=== PATIENT | female | born 1950 | race Caucasian/White ===

== ENCOUNTER 2021-03-06 16:13 | Emergency (ER) | payer OTHER ==
[~2021-03-06] VITALS: Ht 162.6 cm; Wt 73.9 kg
[2021-03-06 16:13] VITALS: BP 147/71
--- NOTE | 2021-03-06 16:13 | NUR ---
PT BIBA AND PLACED IN BED 9.
--- NOTE | 2021-03-06 16:49 | NUR ---
DR SWANN AT BEDSIDE EVALUATING PT
[2021-03-06] MEDS ORDERED: MORPHINE SULFATE 4 MG/ML SYR IVP ONE (17:20)
--- NOTE | 2021-03-06 17:28 | NUR ---
71 Y/O FEMALE BIBA WITH C/O 05/11 HEADACHE. PER MEDICS, PT WAS ON THE WAY HERE AND STOPPED AT [facility] AND CALLED 911. PT ALSO C/O CHEST DISCOMFORT AND . PT DENIES ANYONE SICK AT HOME. PT PLACED ON MONITOR AND O2 CONT READING. EKG DONE; SINUS TACHY. PT DENIES SOB, N/V/D AT THIS TIME. ROM AND SENSATION INTACT, NO WEAKNESS NOTED TO EXT. FACIAL SYMMETRY, PERRLA. A&OX4, RR EVEN AND UNLABORED. BED IN LOWEST POSITION, SIDE RAILS UP FOR SAFETY. DAUGHTER AT BEDSIDE. PMH:HEART STENT- STEMI, DM, HTN NKDA
[2021-03-06 17:38] LABS: BASOPHILS # (AUTO) 0.1 K/uL (0.00-0.22); BASOPHILS % (AUTO) 0.4 % (0.0-2.0); EOSINOPHILS % (AUTO) 0.1 % (0.0-4.0); LYMPHOCYTES # (AUTO) 1.1 K/uL (2.5-16.5); LYMPHOCYTES % (AUTO) 7.4 % (20.5-51.1); MEAN CORPUSCULAR HEMOGLOBIN 32 pg (27-31); MEAN CORPUSCULAR HGB CONC 34 g/dL (33-37); MEAN CORPUSCULAR VOLUME 93.5 fL (80-94); MONOCYTES % (AUTO) 6.7 % (1.7-9.3); NEUTROPHILS # (AUTO) 12.8 K/uL (1.8-7.7); NEUTROPHILS % (AUTO) 85.4 % (42.2-75.2); PLATELET COUNT (AUTO) 258 K/uL (140-450); RED BLOOD CELL COUNT(AUTO) 3.42 MIL/uL (4.20-5.40); RED CELL DISTRIBUTION WIDTH 13.4 % (11.6-13.7); WHITE BLOOD COUNT (AUTO) 14.9 K/uL (4.8-10.8)
[2021-03-06] MEDS ORDERED: LISI40TA12 PO (17:42)
[2021-03-06] MEDS ORDERED: GLIP10TE PO (17:42)
[2021-03-06] MEDS ORDERED: ASPI-1822 PO (17:42)
[2021-03-06] MEDS ORDERED: METF500T PO (17:42)
[2021-03-06 17:50] LABS: ALBUMIN 3.6 g/dL (3.4-5.0); ANION GAP 13.9 (8-16); ASPARTATE AMINOTRANSFERASE 26 U/L (15-37); CARBON DIOXIDE 24.2 mmol/L (21-32); CHLORIDE 99 mmol/L (98-107); CREATININE 0.9 mg/dL (0.6-1.3); GLUCOSE 205 mg/dL (74-106); POTASSIUM 4.1 mmol/L (3.5-5.1); SODIUM SERUM 133 mmol/L (136-145); TOTAL BILIRUBIN 0.7 mg/dL (0.0-1.0); UREA NITROGEN, BLOOD 16 mg/dL (7-18)
--- NOTE | 2021-03-06 18:19 | NUR ---
PT TRANSPORTED TO CT VIA R[facility].
--- NOTE | 2021-03-06 18:41 | NUR ---
PT BACK FROM CT AND CONNECTED TO MONITOR
--- NOTE | 2021-03-06 19:14 | NUR ---
Rceived report from NADIA [facility] for continuity of care
--- NOTE | 2021-03-06 19:15 | NUR ---
REPORT GIVEN TO TL RN, TRANSFER OF CARE AT THIS TIME
--- NOTE | 2021-03-06 19:22 | NUR ---
patient in semi fowlers, relaxed, VSS. AAOX4. patient's daughter at bedside. c/o pain of 02/08. ERMD made aware.
[2021-03-06] MEDS ORDERED: HYDROcodone/APAP 5/325 MG 1 TAB TAB PO ONE (20:10)
[2021-03-06] MEDS ORDERED: ACET-2619 PO (20:14)
--- NOTE | 2021-03-06 20:30 | NUR ---
IV removed, catheter intact and site benign. Applied folded 4x4 gauze and tape to stop bleeding.
[2021-03-06 20:37] VITALS: BP 124/47
== END 2021-03-06 20:36 | disposition home or self-care (01) ==
LOC: MED 16:13
DX: R51.9 Headache, unspecified (principal); R11.0 Nausea; E07.9 Disorder of thyroid, unspecified; E11.9 Type 2 diabetes mellitus without complications; I10 Essential (primary) hypertension; Z79.899 Other long term (current) drug therapy
CPT/HCPCS: 36415; 70450; 70496; 70498; 80053; 84484; 85025; 85610; 85730; 93005; 96372; 99285; J2270; Q9967

== ENCOUNTER 2021-03-09 19:01 | Inpatient (IN) | payer OTHER, SELFPAY ==
[~2021-03-09] VITALS: Ht 162.6 cm; Wt 83.9 kg
[~2021-03-09 19:01] MED LIST: ACET-2619 PO; ASPI-1822 PO; GLIP10TE PO; LISI40TA12 PO; METF500T PO
[2021-03-09 19:20] VITALS: BP 126/62
--- NOTE | 2021-03-09 19:20 | NUR ---
to tent via gurney .brought in by ambulance with c/o fever, cough, sob, sao2 95%
[2021-03-09] MEDS ORDERED: NACL 0.9% 500 ML IV ONE (21:55)
--- NOTE | 2021-03-09 22:10 | NUR ---
Blood for labwork drawn . Patient tolerated well.
[2021-03-09] MEDS ORDERED: ONDANSETRON 4 MG/2 ML VIAL IVP ONE (22:15)
[2021-03-09] MEDS ORDERED: NACL 0.9% 1,000 ML IV ONE (22:15)
[2021-03-09 22:38] LABS: BASOPHILS % (AUTO) 0.2 % (0.0-2.0); HEMATOCRIT 30.9 % (36-48); HEMOGLOBIN 10.4 g/dL (12.0-16.0); LYMPHOCYTES # (AUTO) 0.6 K/uL (2.5-16.5); LYMPHOCYTES % (AUTO) 4.6 % (20.5-51.1); MEAN CORPUSCULAR HEMOGLOBIN 32 pg (27-31); MEAN CORPUSCULAR HGB CONC 34 g/dL (33-37); MEAN CORPUSCULAR VOLUME 94.1 fL (80-94); MONOCYTES # (AUTO) 0.9 K/uL (0.8-1.0); MONOCYTES % (AUTO) 6.8 % (1.7-9.3); NEUTROPHILS # (AUTO) 11.7 K/uL (1.8-7.7); NEUTROPHILS % (AUTO) 88.4 % (42.2-75.2); PLATELET COUNT (AUTO) 259 K/uL (140-450); RED BLOOD CELL COUNT(AUTO) 3.28 MIL/uL (4.20-5.40); RED CELL DISTRIBUTION WIDTH 13.8 % (11.6-13.7); WHITE BLOOD COUNT (AUTO) 13.3 K/uL (4.8-10.8)
[2021-03-09 22:56] LABS: LACTATE DEHYDROGENASE 179 U/L (81-234)
[2021-03-09 23:06] LABS: ALBUMIN 2.7 g/dL (3.4-5.0); ANION GAP 8.7 (8-16); ASPARTATE AMINOTRANSFERASE 55 U/L (15-37); CARBON DIOXIDE 30.3 mmol/L (21-32); CHLORIDE 89 mmol/L (98-107); CREATININE 1.1 mg/dL (0.6-1.3); GLUCOSE 337 mg/dL (74-106); SODIUM SERUM 124 mmol/L (136-145); TOTAL BILIRUBIN 1.2 mg/dL (0.0-1.0); UREA NITROGEN, BLOOD 11 mg/dL (7-18)
[2021-03-09 23:13] LABS: C-REACTIVE PROTEIN QUANT 34.1 mg/dL (0.0-0.9)
[2021-03-09 23:14] LABS: PROTHROMBIN TIME 11.3 secs (10.8-13.4)
[2021-03-10] MEDS ORDERED: MORPHINE SULFATE 4 MG/ML SYR IVP ONE (00:05)
[2021-03-10] MEDS ORDERED: IBUPROFEN 400 MG TAB PO ONE (00:05)
[2021-03-10] MEDS ORDERED: PIPERACILLIN/TAZOBACTAM 3.375 GM in DEXTROSE 5% 50 ML IV ONE (00:05)
--- NOTE | 2021-03-10 00:20 | NUR ---
SWABS FOR NOVEL , HERNAN, RSV, INFLUENZA A& B SENT TO LAB
[2021-03-10 00:39] LABS: APPEARANCE,URINE CLOUDY (CLEAR); BILIRUBIN,URINE 1+ (NEGATIVE); BLOOD, URINE 2+ (NEGATIVE); COLOR,URINE DARK YELLOW (YELLOW); LEUKOCYTE ESTERASE ,URINE NEGATIVE (NEGATIVE); NITRITE, URINE NEGATIVE (NEGATIVE); UGLUCOSE 3+ (NEGATIVE)
[2021-03-10 00:50] LABS: RBC,URINE 0-5 /HPF (0-5)
[2021-03-10 01:15] LABS: RSV NEGATIVE (NEGATIVE)
[2021-03-10] MEDS ORDERED: IBUPROFEN 400 MG TAB ONE (01:24)
--- NOTE | 2021-03-10 01:47 | NUR ---
PT TAKEN TO BED 3
[2021-03-10] MEDS ORDERED: MORPHINE SULFATE 4 MG/ML SYR ONE (02:43)
[2021-03-10] MEDS ORDERED: PIPERACILLIN/TAZOBACTAM 3.375 GM VIAL IV ONE (02:43)
[2021-03-10] MEDS ORDERED: ACETAMINOPHEN EXTRA STRENGTH 500 MG TAB ONE (02:43)
[2021-03-10] MEDS ORDERED: ONDANSETRON 4 MG/2 ML VIAL ONE (02:43)
[2021-03-10] MEDS ORDERED: ACETAMINOPHEN EXTRA STRENGTH 500 MG TAB PO ONE (02:45)
[2021-03-10] MEDS ORDERED: cefTRIAXone 1,000 MG VIAL ONE (05:32)
--- NOTE | 2021-03-10 07:15 | NUR ---
NEW IV BAG D5 NS AT 100 ML/HOUR WAS HANGED, INFUSING WELL, TOLERATED WELL BY THE PATIENT.
--- NOTE | 2021-03-10 07:30 | NUR ---
REPORT RECEIVED FROM SARAVANAN ZUNIGA FOR CONTINUITY OF CARE. PT A&OX4. ON 2LPM NASAL CANNULA. 02 SATURIATON 97%. SR ON MONITOR. IV SITE LT AC 18G, INTACT, PATENT, GOOD BLOOD RETURN. SKIN INTACT, WARM AND DRY. SAFETY PRECAUTIONS IN PLACE. CALL LIGHT WITHIN REACH. WILL CONTINUE TO MONITOR.
[2021-03-10] MEDS ORDERED: ONDANSETRON 4 MG/2 ML VIAL IVP PRN (08:15)
[2021-03-10] MEDS ORDERED: POTASSIUM CHLORIDE 10 MEQ TABER PO PRN (08:15)
[2021-03-10] MEDS ORDERED: HYDROcodone/APAP 5/325 MG 1 TAB TAB PO PRN (08:15)
[2021-03-10] MEDS ORDERED: NACL 0.9% 1,000 ML IV SCH (08:15)
[2021-03-10] MEDS ORDERED: KCL 20 MEQ/WATER INJ PREMIX 200 ML IV PRN (08:15)
[2021-03-10] MEDS ORDERED: MAG SULF 2000 MG/WATER PREMIX 50 ML IV PRN (08:15)
[2021-03-10] MEDS ORDERED: MAGNESIUM OXIDE 400 MG TAB PO PRN (08:15)
[2021-03-10] MEDS ORDERED: DEXTROSE 50% 50 ML SYR IVP PRN (08:20)
--- NOTE | 2021-03-10 08:39 | NUR ---
89Daughter Thelma Steen
[2021-03-10] MEDS: DOCUSATE SODIUM 100 MG GELCAP PO SCH (09:27)
--- NOTE | 2021-03-10 10:45 | NUR ---
PT AMBULATED TO RESTROOM, STEADY GAIT
--- NOTE | 2021-03-10 10:49 | NUR ---
RECEIVED CALL FROM PT'S DAUGHTER JENNI, UPDATED ON PT STATUS. ALL QUESTIONS AND CONCERNS ANSWERED AT THIS TIME,
[2021-03-10] MEDS: BLOOD GLUCOSE MONITORING 1 DEV DEV FS SCH ×3 (11:30→21:09)
[2021-03-10] MEDS: INSULIN LISPRO SLIDING SCALE 100 UNITS/ML VIAL SUBQ PRN ×3 (12:03→21:11)
--- NOTE | 2021-03-10 12:03 | NUR ---
Patient will be admitted to care of DR BLUM. Admited to MED/SURG. Will go to room 117. Belongings list completed. Report to DANIAL ZUNIGA.
--- NOTE | 2021-03-10 12:10 | NUR ---
Received pt from ER patient alert, awake, shaking, able to make needs know, skin warm to touch resp. even and unlabored, o2 sat 90, put o2 at 2l, o2 sat went up 97, no vomiting noted, temp 100 orally, tylenol given, lunch served , patient with fair appetite, daughter at bedside, call light within easy reach.
[2021-03-10] MEDS: ACETAMINOPHEN 325 MG TAB PO PRN ×2 (12:28→23:30)
[2021-03-10 13:09] LABS: ANION GAP 9.7 (8-16); CARBON DIOXIDE 28.3 mmol/L (21-32); CHLORIDE 92 mmol/L (98-107); GLUCOSE 269 mg/dL (74-106); SODIUM SERUM 126 mmol/L (136-145); UREA NITROGEN, BLOOD 16 mg/dL (7-18)
[2021-03-10 13:24] VITALS: BP 164/55
[2021-03-10 13:26] VITALS: BP 130/60
--- NOTE | 2021-03-10 13:30 | NUR ---
RECEIVE REPORT FROM DANIAL ZUNIGA FOR CONTINUITY OF PATIENT CARE. PATIENT AWAKE AND ALERT. DAUGHTER AT BEDSIDE. ALL SAFETY MEASURES IN PLACE. WILL CONTINUE TO MONITOR.
[2021-03-10] MEDS ORDERED: SODIUM PHOSPHATE 118 ML ENEM RC PRN (14:05)
--- NOTE | 2021-03-10 14:44 | NUR ---
PATIENT AWAKE AND ALERT. BREATHING EVEN AND UNLABORED. PATIENT ON 2 LITERS VIA NASAL CANNULA. DAUGHTER AT BEDSIDE. ALL SAFETY MEASURES IN PLACE. WILL CONTINUE TO MONITOR.
--- NOTE | 2021-03-10 16:52 | NUR ---
PATIENT HAS BEEN SCREENED AND CATEGORIZED HIGH NUTRITION RISK. PATIENT WILL BE SEEN WITHIN 1-2 DAYS OF ADMISSION. 03/10/21-03/11/21 FNS REFERRAL RECEIVED FOR UNINTENTIONAL WEIGHT LOSS AND DECREASED PO INTAKE OVER A WEEK VANDANA NUNEZ RD
[2021-03-10] MEDS ORDERED: DOCUSATE SOD/SENNA 50/8.6 MG 1 TAB PO PRN (17:35)
--- NOTE | 2021-03-10 18:12 | NUR ---
PATIENT SLEEPING. NO ACUTE DISTRESS NOTED. PATIENT ON 2 LITER VIA NASAL CANNULA. VS STABLE. ALL SAFETY MEASURES IN PLACE. WILL CONTINUE TO MONITOR.
--- NOTE | 2021-03-10 19:30 | NUR ---
ENDORSED TO DETAIL SUPERVISOR NURSE FOR CONTINUITY OF CARE. PATIENT STABLE. ALL SAFETY MEASURES IN PLACE. WILL CONTINUE TO MONITOR
[2021-03-10 20:00] VITALS: BP 145/75
--- NOTE | 2021-03-10 20:00 | NUR ---
PATIENT WAS RECEIVED AWAKE ALERT IN HER BED WITH DAUGHTER BESIDE HER. ON DROPLET PRECAUTION,
[2021-03-10] MEDS: DEXT 5% /NACL 0.9% 1,000 ML IV SCH (20:05)
--- NOTE | 2021-03-10 21:00 | NUR ---
ALL DUE MEDS WERE GIVEN, HEPARIN 5000 UNITS SQ INJECTION WAS GIVEN TOLERATED WELL.
--- NOTE | 2021-03-10 22:00 | NUR ---
PATIENT WAS ALERT ORIENT X 4, NO DISTRESS, PCR CAME BACK NEGATIVE, TRANSFERED TO A NEW ROOM AT 120 BED B.
--- NOTE | 2021-03-11 | NUR ---
PATIENT WENT TO VOID IN THE BATHROOM
[2021-03-11] MEDS: ACETAMINOPHEN 325 MG TAB PO PRN ×2 (00:46→20:40)
[2021-03-11 04:00] VITALS: BP 125/65
--- NOTE | 2021-03-11 06:00 | NUR ---
BS= 296 MG/DL, 6 UNIT REG INSULIN WAS GIVEN SQ RLQ ABD. TOLERATED WELL.
[2021-03-11] MEDS: DEXT 5% /NACL 0.9% 1,000 ML IV SCH (06:05)
[2021-03-11 06:14] LABS: BASOPHILS % (AUTO) 0.3 % (0.0-2.0); EOSINOPHILS # (AUTO) 0.2 K/uL (0-0.4); EOSINOPHILS % (AUTO) 1.3 % (0.0-4.0); HEMATOCRIT 27.7 % (36-48); HEMOGLOBIN 9.4 g/dL (12.0-16.0); LYMPHOCYTES % (AUTO) 7.8 % (20.5-51.1); MEAN CORPUSCULAR HEMOGLOBIN 32 pg (27-31); MEAN CORPUSCULAR HGB CONC 34 g/dL (33-37); MEAN CORPUSCULAR VOLUME 93.6 fL (80-94); MONOCYTES # (AUTO) 1.4 K/uL (0.8-1.0); NEUTROPHILS # (AUTO) 10.1 K/uL (1.8-7.7); NEUTROPHILS % (AUTO) 79.6 % (42.2-75.2); PLATELET COUNT (AUTO) 220 K/uL (140-450); RED BLOOD CELL COUNT(AUTO) 2.96 MIL/uL (4.20-5.40); RED CELL DISTRIBUTION WIDTH 14.1 % (11.6-13.7); WHITE BLOOD COUNT (AUTO) 12.8 K/uL (4.8-10.8)
[2021-03-11 06:50] LABS: ALBUMIN 2.1 g/dL (3.4-5.0); ANION GAP 8.9 (8-16); ASPARTATE AMINOTRANSFERASE 78 U/L (15-37); CARBON DIOXIDE 28.6 mmol/L (21-32); CHLORIDE 93 mmol/L (98-107); GLUCOSE 259 mg/dL (74-106); POTASSIUM 4.5 mmol/L (3.5-5.1); SODIUM SERUM 126 mmol/L (136-145); TOTAL BILIRUBIN 0.9 mg/dL (0.0-1.0); UREA NITROGEN, BLOOD 18 mg/dL (7-18)
[2021-03-11] MEDS: BLOOD GLUCOSE MONITORING 1 DEV DEV FS SCH ×4 (07:14→20:44)
[2021-03-11] MEDS: INSULIN LISPRO SLIDING SCALE 100 UNITS/ML VIAL SUBQ PRN ×4 (07:15→20:43)
--- NOTE | 2021-03-11 07:34 | NUR ---
ALL REPORTS GIVEN TO INCOMING RN, TRANSFER OF CARE ENDORSED.
[2021-03-11 08:00] VITALS: BP 168/88
[2021-03-11] MEDS: POLYETHYLENE GLYCOL 17 GM/PKT PO SCH (09:00)
[2021-03-11] MEDS ORDERED: amLODIPine 5 MG TAB PO SCH (09:25)
[2021-03-11] MEDS: DOCUSATE SODIUM 100 MG GELCAP PO SCH (10:16)
[2021-03-11] MEDS ORDERED: bisacodyL 5 MG TABEC PO PRN (11:10)
[2021-03-11] MEDS: NACL 0.9% 1,000 ML IV SCH (12:25)
[2021-03-11 16:00] VITALS: BP 149/67
[2021-03-11 16:44] LABS: ANION GAP 11.9 (8-16); CARBON DIOXIDE 29.2 mmol/L (21-32); CHLORIDE 88 mmol/L (98-107); GLUCOSE 267 mg/dL (74-106); POTASSIUM 4.1 mmol/L (3.5-5.1); SODIUM SERUM 125 mmol/L (136-145); UREA NITROGEN, BLOOD 14 mg/dL (7-18)
--- NOTE | 2021-03-11 17:06 | NUR ---
03/11/21 RD INITIAL ASSESSMENT COMPLETED PLEASE REFER TO NUTRITION ASSESSMENT UNDER CARE ACTIVITY FOR ESTIMATED NUTRITIONAL NEEDS. 1. RECOMMEND MECHANICAL CCHO 60GM DIET TOLERATED 2. RECOMMEND GLUCERNA BID FOR POOR PO INTAKE 3. RD TO FOLLOW-UP 3-5 DAYS, MODERATE RISK VANDANA NUNEZ, RD
--- NOTE | 2021-03-11 19:22 | NUR ---
LATE ENTRY- ROCEPHIN IVPB DISCONTINUED 0620.
--- NOTE | 2021-03-11 19:30 | NUR ---
PATIENT'S BP HIGH THIS AM. PATIENT HAVING SIMONS RATED 9 ON SCALE 1/10 DR IN TO SEE PATIENT. NEW ORDERS FOR BP MED AND MID LINE ORDERED DUE TO PATIENT'S IV INFILTRATED ON KIT ASSEMBLER. MIDLINE PLACED ONCE RN AVALIABLE EARLY AFTERNOON WITH ROCEPHIN GIVEN PATIENT RUNNING LOW GRADE TEMP. AROUND 1500 LAB HERE TO DRAW NEW LAB'S WILL REPORT TO NIGHT NURSE TO FOLLOW UP ON LABS.
--- NOTE | 2021-03-11 19:40 | NUR ---
RECEIVED BEDSIDE REPORT FROM DAY SHIFT NURSE. PATIENT IS AWAKE AND COOPERATIVE. DAUGHTER AT BEDSIDE. PATIENT RESPIRATION EVEN UNLABORED ON ROOM AIR. NO DISTRESS NOTED. SKIN IS WARM AND DRY. RIGHT UPPER ARM PICC LINE NOTED PATENT AND INTACT. PLAN OF CARE WAS DISCUSSED. ALL SAFETY MEASURES IN PLACE. BED IS AT LOW POSITION. CALL LIGHT WITHIN REACH. WILL CONTINUE TO MONITOR
[2021-03-11 20:00] VITALS: BP 153/60
--- NOTE | 2021-03-11 20:40 | NUR ---
INITIAL ASSESSMENT DONE. VITALS WERE TAKEN. PATIENT TEMP 100.7 PRN TYLENOL GIVEN PER FEVER. COOLING MEASURES APPLIED. ALL SCHEDULED MEDS WERE GIVEN PER MD ORDER. WILL CONTINUE TO MONITOR
--- NOTE | 2021-03-11 21:15 | NUR ---
RECHECKED PATIENT TEMPERATURE, PATIENT TEMP 98.5 TEMPORAL. WILL CONTINUE TO MONITOR
--- NOTE | 2021-03-11 22:00 | NUR ---
PROVIDED WATER AND HELPED PATIENT TO THE BATHROOM
[2021-03-11 22:23] LABS: ANION GAP 11.1 (8-16); CARBON DIOXIDE 25.6 mmol/L (21-32); CHLORIDE 91 mmol/L (98-107); GLUCOSE 239 mg/dL (74-106); POTASSIUM 3.7 mmol/L (3.5-5.1); SODIUM SERUM 124 mmol/L (136-145); UREA NITROGEN, BLOOD 15 mg/dL (7-18)
--- NOTE | 2021-03-11 22:30 | NUR ---
PER DR. CARDENAS REPORT PATIENT NA WHEN ITS BELOW 125. PATIENT LATEST NA 124, PAGED AWAITING FOR HIS CALL.
--- NOTE | 2021-03-11 23:10 | NUR ---
PAGED DR. HENRY TWICE, STILL WAITING FOR HIS CALL BACK.
--- NOTE | 2021-03-11 23:30 | NUR ---
SPOKE WITH DR. HENRY, REPORTED SODIUM 124, NO NEW ORDERS RECEIVED.
--- NOTE | 2021-03-12 00:41 | NUR ---
MADE ROUNDS, PATIENT SLEEPING RESPIRATION EVEN UNLABORED ON ROOM AIR. NO DISTRESS NOTED. WILL CONTINUE TO MONITOR,
[2021-03-12] MEDS: NACL 0.9% 1,000 ML IV SCH (01:10)
--- NOTE | 2021-03-12 01:45 | NUR ---
PATIENT WOKE UP HUNGRY, PROVIDED FOOD.
--- NOTE | 2021-03-12 02:28 | NUR ---
MADE ROUNDS, PATIENT SLEEPING RESPIRATION EVEN UNLABORED ON ROOM AIR. NO DISTRESS NOTED. WILL CONTINUE TO MONITOR.
[2021-03-12 04:00] VITALS: BP 162/56
--- NOTE | 2021-03-12 05:10 | NUR ---
VITALS WERE TAKEN.
[2021-03-12] MEDS: hydrALAZINE 25 MG TAB PO PRN ×2 (05:28→10:45)
--- NOTE | 2021-03-12 05:30 | NUR ---
PATIENT BP 162/56 PRN HYDRALAZINE GIVEN PER ORDER. WILL CONTINUE TO MONITOR
[2021-03-12 05:55] LABS: BASOPHILS % (AUTO) 0.2 % (0.0-2.0); EOSINOPHILS % (AUTO) 0.1 % (0.0-4.0); HEMATOCRIT 27.6 % (36-48); HEMOGLOBIN 9.5 g/dL (12.0-16.0); LYMPHOCYTES # (AUTO) 1.4 K/uL (2.5-16.5); LYMPHOCYTES % (AUTO) 8.3 % (20.5-51.1); MEAN CORPUSCULAR HEMOGLOBIN 32 pg (27-31); MEAN CORPUSCULAR HGB CONC 35 g/dL (33-37); MEAN CORPUSCULAR VOLUME 93.2 fL (80-94); MONOCYTES # (AUTO) 1.5 K/uL (0.8-1.0); MONOCYTES % (AUTO) 8.6 % (1.7-9.3); NEUTROPHILS # (AUTO) 14.3 K/uL (1.8-7.7); NEUTROPHILS % (AUTO) 82.8 % (42.2-75.2); PLATELET COUNT (AUTO) 254 K/uL (140-450); RED BLOOD CELL COUNT(AUTO) 2.96 MIL/uL (4.20-5.40); RED CELL DISTRIBUTION WIDTH 14.1 % (11.6-13.7); WHITE BLOOD COUNT (AUTO) 17.3 K/uL (4.8-10.8)
[2021-03-12 06:10] LABS: ANION GAP 12.5 (8-16); ASPARTATE AMINOTRANSFERASE 97 U/L (15-37); CARBON DIOXIDE 25.6 mmol/L (21-32); CHLORIDE 91 mmol/L (98-107); CREATININE 0.9 mg/dL (0.6-1.3); GLUCOSE 223 mg/dL (74-106); MAGNESIUM 1.7 mg/dL (1.8-2.4); POTASSIUM 4.1 mmol/L (3.5-5.1); SODIUM SERUM 125 mmol/L (136-145); TOTAL BILIRUBIN 1.5 mg/dL (0.0-1.0); UREA NITROGEN, BLOOD 12 mg/dL (7-18)
[2021-03-12] MEDS: INSULIN LISPRO SLIDING SCALE 100 UNITS/ML VIAL SUBQ PRN ×4 (06:29→21:13)
[2021-03-12] MEDS: BLOOD GLUCOSE MONITORING 1 DEV DEV FS SCH ×4 (06:30→21:19)
--- NOTE | 2021-03-12 07:14 | NUR ---
ENDORSED PATIENT TO DAY SHIFT NURSE FOR CONTINUITY OF CARE
[2021-03-12 08:00] VITALS: BP 158/62
[2021-03-12] MEDS ORDERED: MAG SULF 2000 MG/WATER PREMIX 50 ML IV SCH (09:00)
[2021-03-12] MEDS ORDERED: EPOETIN ALFA-EPBX 10,000 UNITS/ML VIAL SUBQ SCH (09:00)
[2021-03-12] MEDS: DOCUSATE SODIUM 100 MG GELCAP PO SCH (10:44)
[2021-03-12] MEDS: POLYETHYLENE GLYCOL 17 GM/PKT PO SCH (10:45)
[2021-03-12] MEDS: SODIUM CHLORIDE 1 GM TAB PO SCH ×3 (10:46→17:00)
[2021-03-12] MEDS: amLODIPine 5 MG TAB PO SCH (10:54)
[2021-03-12] MEDS ORDERED: SAMSCA PO SCH (11:00)
[2021-03-12 16:00] VITALS: BP 152/67
[2021-03-12 18:02] LABS: ANION GAP 9.6 (8-16); CARBON DIOXIDE 26.4 mmol/L (21-32); CHLORIDE 93 mmol/L (98-107); CREATININE 0.9 mg/dL (0.6-1.3); GLUCOSE 267 mg/dL (74-106); SODIUM SERUM 125 mmol/L (136-145); UREA NITROGEN, BLOOD 12 mg/dL (7-18)
[2021-03-12 19:23] LABS: APPEARANCE,URINE CLEAR (CLEAR); BILIRUBIN,URINE NEGATIVE (NEGATIVE); BLOOD, URINE TRACE-I (NEGATIVE); COLOR,URINE YELLOW (YELLOW); LEUKOCYTE ESTERASE ,URINE NEGATIVE (NEGATIVE); NITRITE, URINE NEGATIVE (NEGATIVE); UGLUCOSE TRACE (NEGATIVE)
[2021-03-12 19:29] LABS: WBC,URINE 0-5 /HPF (0-5)
--- NOTE | 2021-03-12 19:45 | NUR ---
RECEIVED ENDORSEMENT FROM RN DAYSHIFT NURSE, FOR CONTINUITY OF CARE, PT IN STABLE CONDITION.
[2021-03-12 20:00] VITALS: BP 128/65
--- NOTE | 2021-03-12 20:00 | NUR ---
PT LYING DOWN IN BED SHE IS AOX3 AND MOSTLY [place]ET[place]ESE SPEAKING. SHE HAS AN INTACT RIGHT UPPER MIDLINE DOUBLE LUMEN RUNNING TO KVO. PT IS ON ROOM AIR AND SKIN INTACT. PT ABLE TO AMBULATE WITH STANDBY ASSISTANCE. V/S FOLLOWS: T 98.1 P 103 R 17 B/P 128/65 02 96% ON ROOM AIR. ALL FALLS PRECAUTIONS IN PLACE.
[2021-03-12] MEDS: MEROPENEM 500 MG in NACL 0.9% 50 ML IV SCH (20:49)
--- NOTE | 2021-03-12 21:15 | NUR ---
PT FINGERSTICK IS 271, SHE WAS GIVEN ORDERED /SCHEDULED SQ HUMALOG PER INSULIN SLIDING SCALE. PT VERBALIZED UNDERSTANDING OF WHY SHE WAS GIVEN INSULIN. PT ALSO GIVEN SCHEDULED MERREM AND HEPARIN, AGAIN PURPOSE AND SIDE EFFECTS OF THE ORDERED AND SCHEDULED MEDS PROVIDED, REINFORCEMENT NEEDED, BUT PT VERBALIZED UNDERSTANDING.
--- NOTE | 2021-03-12 22:13 | NUR ---
ES CONTINUES TO HAVE SLIGHT HIGH BP WITH WITH NEW BP MEDICATION ADDED NOW RENAL ON CASE FOLLOWING LOW NA LEVEL CONTINUE'S ON ANTIBIOTIC THERAPY NO BM OF TODAY AFTER PATIENT GIVEN DUCOLAX TAB'S AND GIVEN ENEMA. IN AND OUT CATH DONE TO OBTAIN STERILE URINE SAMPLE PATIENT GETTING UP OUT OF BED HAVING TO URINATE FREQUENTLY. STILL RUNNING LOW GRADE TEMP'S WILL FOLLOW UP WITH LAB'S AT 22:00 DAUGHTER REMAIN'S AT BEDSIDE.
[2021-03-12 22:35] LABS: ANION GAP 12.8 (8-16); CARBON DIOXIDE 24.1 mmol/L (21-32); CHLORIDE 98 mmol/L (98-107); GLUCOSE 249 mg/dL (74-106); POTASSIUM 3.9 mmol/L (3.5-5.1); SODIUM SERUM 131 mmol/L (136-145); UREA NITROGEN, BLOOD 12 mg/dL (7-18)
--- NOTE | 2021-03-13 00:30 | NUR ---
PT WAS STANDBY ASSIST TO THE TOILET. IV RUNNING ORDERED. PT GOWN AND SOCKS CHANGED REQUESTED. ALL FALLS PRECAUTIONS IN PLACE.
--- NOTE | 2021-03-13 04:30 | NUR ---
PT IN BED STANDBY ASSISTANCE TO TOILET AND BACK V/S FOLLOWS: T 98.5 P 91 R 18 B/P140/65 02 95% ON ROOM AIR. ALL FALLS PRECAUTIONS IN PLACE.
--- NOTE | 2021-03-13 05:30 | NUR ---
MERREM IV ABT HUNG AND RUNNING ORDERED.
[2021-03-13] MEDS: MEROPENEM 500 MG in NACL 0.9% 50 ML IV SCH ×3 (05:36→20:30)
[2021-03-13 06:21] LABS: HEMATOCRIT 27.1 % (36-48); HEMOGLOBIN 9.3 g/dL (12.0-16.0); MEAN CORPUSCULAR HEMOGLOBIN 32 pg (27-31); MEAN CORPUSCULAR HGB CONC 34 g/dL (33-37); MEAN CORPUSCULAR VOLUME 92.8 fL (80-94); PLATELET COUNT (AUTO) 289 K/uL (140-450); RED BLOOD CELL COUNT(AUTO) 2.92 MIL/uL (4.20-5.40); RED CELL DISTRIBUTION WIDTH 14.2 % (11.6-13.7); WHITE BLOOD COUNT (AUTO) 18.8 K/uL (4.8-10.8)
[2021-03-13] MEDS: INSULIN LISPRO SLIDING SCALE 100 UNITS/ML VIAL SUBQ PRN ×4 (06:24→20:33)
[2021-03-13] MEDS: BLOOD GLUCOSE MONITORING 1 DEV DEV FS SCH ×4 (06:27→20:22)
--- NOTE | 2021-03-13 06:30 | NUR ---
PT FINGERSTICK IS 268 6 UNITS HUMALOG COVERAGE GIVEN. ALL REQUESTED NEEDS ATTENDED BY STAFF.
--- NOTE | 2021-03-13 07:15 | NUR ---
RECEIVED REPORT FROM METAL BONDING HELPER NURSE. PATIENT IS AWAKE, ALERT, AND COOPERATIVE. RESPIRATION EVEN UNLABORED ON ROOM AIR. NO DISTRESS NOTED. SKIN IS WARM AND DRY. RIGHT UPPER ARM PICC LINE NOTED PATENT AND INTACT. PLAN OF CARE WAS DISCUSSED. ALL SAFETY MEASURES IN PLACE. BED IS AT LOW POSITION. CALL LIGHT WITHIN REACH, WILL CONTINUE TO MONITOR
[2021-03-13 07:16] LABS: ALBUMIN 1.9 g/dL (3.4-5.0); ANION GAP 9.1 (8-16); ASPARTATE AMINOTRANSFERASE 75 U/L (15-37); CARBON DIOXIDE 27.8 mmol/L (21-32); CHLORIDE 98 mmol/L (98-107); CREATININE 0.9 mg/dL (0.6-1.3); GLUCOSE 264 mg/dL (74-106); MAGNESIUM 2.2 mg/dL (1.8-2.4); POTASSIUM 3.9 mmol/L (3.5-5.1); SODIUM SERUM 131 mmol/L (136-145); UREA NITROGEN, BLOOD 11 mg/dL (7-18)
[2021-03-13 07:33] LABS: LYMPHOCYTES % (MANUAL) 4 % (20-46); MONOCYTES % (MANUAL) 8 % (5-12)
[2021-03-13 08:00] VITALS: BP 155/79
--- NOTE | 2021-03-13 08:30 | NUR ---
FAMILY AT BEDSIDE
--- NOTE | 2021-03-13 09:30 | NUR ---
ALL SCHEDULED MEDS WERE GIVEN PER ORDER. WILL CONTINUE TO MONITOR
[2021-03-13] MEDS: DOCUSATE SODIUM 100 MG GELCAP PO SCH (09:31)
[2021-03-13] MEDS: amLODIPine 5 MG TAB PO SCH (09:31)
[2021-03-13] MEDS: SODIUM CHLORIDE 1 GM TAB PO SCH ×3 (09:31→17:39)
[2021-03-13] MEDS: POLYETHYLENE GLYCOL 17 GM/PKT PO SCH (09:32)
--- NOTE | 2021-03-13 13:20 | NUR ---
SCHEDULED MERREM GIVEN PER ORDER. WILL CONTINUE TO MONITOR
--- NOTE | 2021-03-13 13:47 | NUR ---
DC PLANNING: PATIENT WITH BS OF 264, NA+ 131. ON NA+ PO, URINE AND BLOOD CULTURES RESULTED WITH KLEBSIELLA. WBC 18.8, PER DR. BOWLES HE WILL ORDER AN ID CONSULT. DC NEEDS OF HOME HEALTH AND CANE PER P.T. RECOMMENDATIONS. CM WILL FOLLOW FOR NEEDS. Addendum: 03/13/21 at 1425 by Mariela Ramsey CM DC PLANNING: CM SPOKE WITH PATIENTS DAUGHTER JENNI BY PHONE. PATIENT LIVES IN A SINGLE STORY HOUSE WITH JENNI, AND IS INDEPENDENT IN ALL ACTIVITIES. PATIENT GOES TO THE [facility] SIX MONTH[facility] FOR A GENERAL EXAM. NO PRIOR HOME HEALTH OR DME, ENDORSED THAT P.T. RECOMMENDS A CANE, AND THAT THE PATIENT MAY NEED HOME HEALTH FOR WOUND CARE AND FOLLOW UP. JENNI STATES SHE'S IN AGREEMENT WITH THE DC PLAN, CM WILL FOLLOW FOR NEEDS.
--- NOTE | 2021-03-13 14:09 | NUR ---
ATTEMPTED TO SEE PATIENT FOR PHYSICAL THERAPY TREATMENT HOWEVER PATIENT REPORTS PERFORMING EXERCISES PRIOR TO VISIT. DAUGHTER AT BEDSIDE SHOWING VIDEO OF PATIENT AMBULATING PRIOR TO VISIT. AMBULATED APPROX 80FT PER DAUGHTER WITH IMPROVED BALANCE FROM YESTERDAY'S THERAPY SESSION. PATIENT LYING IN BED COMFORTABLY STATING SHE JUST WANTS TO SLEEP DUE TO FATIGUE. AGREEABLE TO THERAPY SESSION FOR TOMORROW. RN AWARE.
--- NOTE | 2021-03-13 15:30 | NUR ---
MADE ROUNDS PATIENT SLEEPING RESPIRATION EVEN UNLABORED ON ROOM AIR. NO DISTRESS NOTED. FAMILY AT BEDSIDE. WILL CONTINUE TO MONITOR
[2021-03-13 16:00] VITALS: BP 148/60
--- NOTE | 2021-03-13 17:00 | NUR ---
ALL SCHEDULED MEDS WERE GIVEN PER ORDER. WILL CONTINUE TO MONITOR.
--- NOTE | 2021-03-13 19:11 | NUR ---
ENDORSED PATIENT TO GRAY MIXING OPERATOR NURSE AT BEDSIDE FOR CONTINUITY OF CARE.
--- NOTE | 2021-03-13 19:26 | NUR ---
RECEIVED REPORT FROM DAYSHIFT NURSE, PT STABLE, ON ROOM AIR
[2021-03-13 20:00] VITALS: BP 155/62
--- NOTE | 2021-03-13 21:00 | NUR ---
ALL SCHEDULED MEDS GIVEN. PT TOLERATED WELL, ON ROOM AIR, SAFETY MEASURES IMPLEMENTED.
[2021-03-13] MEDS ORDERED: LEVOFLOXACIN 500 MG/D5W PREMIX 100 ML IV SCH (23:30)
--- NOTE | 2021-03-13 23:30 | NUR ---
SCHEDULED ABX INFUSED, PT TOLERATED WELL
[2021-03-14 05:19] VITALS: BP 159/61
[2021-03-14] MEDS: BLOOD GLUCOSE MONITORING 1 DEV DEV FS SCH ×3 (06:13→18:00)
[2021-03-14] MEDS: INSULIN LISPRO SLIDING SCALE 100 UNITS/ML VIAL SUBQ PRN ×3 (06:15→18:46)
[2021-03-14 06:25] LABS: BASOPHILS # (AUTO) 0.1 K/uL (0.00-0.22); BASOPHILS % (AUTO) 0.3 % (0.0-2.0); EOSINOPHILS % (AUTO) 0.2 % (0.0-4.0); HEMATOCRIT 26.9 % (36-48); HEMOGLOBIN 9.2 g/dL (12.0-16.0); LYMPHOCYTES # (AUTO) 1.8 K/uL (2.5-16.5); LYMPHOCYTES % (AUTO) 8.7 % (20.5-51.1); MEAN CORPUSCULAR HEMOGLOBIN 32 pg (27-31); MEAN CORPUSCULAR HGB CONC 34 g/dL (33-37); MEAN CORPUSCULAR VOLUME 93.3 fL (80-94); MONOCYTES % (AUTO) 9.6 % (1.7-9.3); NEUTROPHILS # (AUTO) 17.2 K/uL (1.8-7.7); NEUTROPHILS % (AUTO) 81.2 % (42.2-75.2); PLATELET COUNT (AUTO) 355 K/uL (140-450); RED BLOOD CELL COUNT(AUTO) 2.89 MIL/uL (4.20-5.40); RED CELL DISTRIBUTION WIDTH 14.1 % (11.6-13.7); WHITE BLOOD COUNT (AUTO) 21.2 K/uL (4.8-10.8)
--- NOTE | 2021-03-14 06:37 | NUR ---
PATIENT STABLE. NO ACUTE EVENT THROUGHOUT THE NIGHT. PATIENT NOT IN ANY DISTRESS AND NO COMPLAIN AT THIS TIME. ALL NEEDS ATTENDED. WILL ENDORSE THE PATIENT TO THE ONCOMING RN FOR CONTINUITY OF CARE.
[2021-03-14 06:38] LABS: ALBUMIN 1.9 g/dL (3.4-5.0); ASPARTATE AMINOTRANSFERASE 58 U/L (15-37); CARBON DIOXIDE 26.3 mmol/L (21-32); CHLORIDE 99 mmol/L (98-107); CREATININE 0.7 mg/dL (0.6-1.3); GLUCOSE 234 mg/dL (74-106); MAGNESIUM 1.9 mg/dL (1.8-2.4); POTASSIUM 4.3 mmol/L (3.5-5.1); SODIUM SERUM 133 mmol/L (136-145); TOTAL BILIRUBIN 0.9 mg/dL (0.0-1.0); UREA NITROGEN, BLOOD 9 mg/dL (7-18)
--- NOTE | 2021-03-14 07:26 | NUR ---
ENDORSED PATIENT TO NADIA [facility] FOR CONTINUITY OF CARE. PATIENT STABLE. SIGNING OFF.
--- NOTE | 2021-03-14 08:00 | NUR ---
NURSE REPORT Report obtained from night nurse James and this nurse assumed care of patient. Received patient asleep at beginning of day shift. No distress noted. VSS. Afeb.
[2021-03-14] MEDS: SODIUM CHLORIDE 1 GM TAB PO SCH ×3 (09:00→18:41)
[2021-03-14] MEDS: DOCUSATE SODIUM 100 MG GELCAP PO SCH (10:36)
[2021-03-14] MEDS: amLODIPine 5 MG TAB PO SCH (10:36)
[2021-03-14] MEDS: POLYETHYLENE GLYCOL 17 GM/PKT PO SCH (10:36)
--- NOTE | 2021-03-14 13:34 | NUR ---
NURSE NOTES BG AFTER LUNCH WAS 450, BUT PATIENT ONLY ATE COTTAGE CHEESE AND SOME FRUT. GIVEN 10 UNITS AND MD WAS BEING PAGED ABOUT THIS.
[2021-03-14 16:00] VITALS: BP 162/65
[2021-03-14] MEDS ORDERED: CIPR500T4 PO (17:35)
[2021-03-14] MEDS ORDERED: SITA25TA3 PO (17:35)
--- NOTE | 2021-03-14 18:46 | NUR ---
NURSE CARE BG BEFORE LUNCH WAS 226. PATIENT WAS GOING TO BE DC'D HOME AND TAKE HER METFORMIN, BUT D/C LATE. GIVEN 4 UNITS OF HUMALOG
[2021-03-14 18:52] VITALS: BP 162/65
--- NOTE | 2021-03-14 19:00 | NUR ---
DISCHARGE NOTE D/C instructions given to patients. Verbalized understandings of instructions. Signed form. Midline removed with catheter intact. 2 package of 4X4s applied. no bleeding noted. Prescriptions given to patient daughter. D/C via wheelchair to [facility] car. He had his red bag and this nurse brought the bag to her room 114. But needed a prado bag taken out for patient. He was thendc'd by w/c to [facility] car.
== END 2021-03-14 19:40 | disposition home or self-care (01) | DRG 872 ==
LOC: MED 19:01 → MTU 03-10 08:11
PROVIDERS: ADMIT Hospitalist; ATTEND Hospitalist
PROC: 05HY33Z Insertion of Infusion Device into Upper Vein, Percutaneous Approach (ICD-10-PCS; principal; 2021-03-11)
PROC: B54MZZA Ultrasonography of Right Upper Extremity Veins, Guidance (ICD-10-PCS; 2021-03-11)
DX: A41.9 Sepsis, unspecified organism (principal); N39.0 Urinary tract infection, site not specified; E87.1 Hypo-osmolality and hyponatremia; E44.1 Mild protein-calorie malnutrition; K92.2 Gastrointestinal hemorrhage, unspecified; I10 Essential (primary) hypertension; Z20.822 Contact with and (suspected) exposure to COVID-19; E87.8 Other disorders of electrolyte and fluid balance, not elsewhere classified; E11.65 Type 2 diabetes mellitus with hyperglycemia; D64.9 Anemia, unspecified; K59.00 Constipation, unspecified; F32.9 Major depressive disorder, single episode, unspecified; E86.0 Dehydration; E83.42 Hypomagnesemia; Z68.31 Body mass index [BMI] 31.0-31.9, adult; Z90.49 Acquired absence of other specified parts of digestive tract; Z79.84 Long term (current) use of oral hypoglycemic drugs; Z79.899 Other long term (current) drug therapy
CPT/HCPCS: 36415; 70450; 71045; 71275; 74018; 76770; 80048; 80053; 81001; 82550; 82728; 82948; 83036; 83540; 83605; 83615; 83735; 83880; 83930; 83935; 84300; 84443; 84484; 85025; 85379; 85384; 85610; 85730; 86140; 87040; 87081; 87086; 87420; 87804; 93005; 96361; 96365; 96375; 97163-GP; 99285; J0696; J1644; J1815; J1956; J2185; J2270; J2405; J2543; J3475; J7060; Q5106; Q9967; U0003